=== PATIENT | female | born 1975 | race Hispanic/Latino ===

== ENCOUNTER 2016-09-13 10:11 | Emergency (ER) | payer SELFPAY ==
[2016-09-13 10:59] LABS: #Basophils 0.1 thou/uL (0.0-0.2); #Monocytes 0.6 thou/uL (0.11-0.59); %Eosinophils 0.5 % (0.0-10.0); %Lymphocytes 45.4 % (21.0-51.0); %Monocytes 8.3 % (0.0-10.0); %Neutrophils 44.8 % (42.0-75.0); Hemoglobin 13.3 g/dL (12.0-16.0); Mean Corpuscular HGB CONC 32.7 g/dL (32.0-36.0); Mean Corpuscular Hemoglobin 29.4 pg (27.0-31.0); Mean Corpuscular Volume 89.7 fl (81.0-99.0); Mean Platelet Volume 7.1 fL (7.4-10.4); Platelet Count 289 thou/uL (130-400); RBC Distribution Width 11.8 % (11.5-14.5); Red Blood Cell (RBC) Count 4.54 mill/uL (4.20-5.40); White Blood Cell (WBC) Count 6.6 thou/uL (4.8-10.8)
[2016-09-13 11:02] LABS: Prothrombin Time 13.4 SEC (12.0-14.7)
[2016-09-13 11:06] LABS: Pregnancy Test - Urine (BHCG) Negative (NEGATIVE); Pregu Control Background? CLEAR/WHITE (CLR/WHITE); Pregu Control Bar Appear? YES (CONTROL BAR)
[2016-09-13 11:07] LABS: Bilirubin Negative (Negative); Blood, Urine Trace (Negative); Clarity Clear (Clear); Glucose, Urine (Dipstick) Negative (Negative); Leukocyte Small (Negative); Nitrite Negative (Negative); Protein, Urine (Dipstick) Negative (Neg-Trace); Urobilinogen 0.2 mg/dL (0.2-1.0); pH, Urine 5.5 (5.0-9.0)
[2016-09-13 11:07] LABS: ALT (SGPT) 58 U/L (8-55); AST (SGOT) 28 U/L (5-34); Albumin 4.1 g/dL (3.5-5.0); Alkaline Phosphatase 84 U/L (40-150); Anion Gap 17 mmol/L (10-20); BUN (Urea Nitrogen) 11 mg/dL (7.0-18.7); Bilirubin, Total 0.2 mg/dL (0.2-1.2); Calc. Creatinine Clearance 0 mL/min (70-130); Calcium 9.2 mg/dL (7.8-10.44); Carbon Dioxide 22 mmol/L (22-29); Chloride 103 mmol/L (98-107); Estimated GFR-MDRD Greater than 90; Globulin 3.6 g/dL (2.4-3.5); Glucose 104 mg/dL (70-105); Potassium 3.5 mmol/L (3.5-5.1); Protein, Total 7.7 g/dL (6.0-8.3); Sodium 138 mmol/L (136-145)
[2016-09-13 11:09] LABS: Bacteria/HPF 1+ HPF (None Seen)
[2016-09-13] MEDS ORDERED: Ibuprofen 800 MG TAB ONE (11:38)
[2016-09-13] MEDS ORDERED: predniSONE 20 MG TAB ONE (11:41)
--- NOTE | 2016-09-13 11:52 | CT ---
CT HEAD NONCONTRAST: HISTORY: Left facial paralysis and numbness. TIA. FINDINGS: No comparison. There is no evidence of acute intracranial hemorrhage or infarct. The ventricles ap pear normal in size, shape, and position. There is no mass effect or shift of midline structures. IMPRESSION: No acute intracranial abnormalities are demonstrated on noncontrast CT head. POS: [facility]AN
== END 2016-09-13 11:55 | disposition home or self-care (01) ==
LOC: NAV ERS 10:11
DX: G51.0 Bell's palsy (principal); F32.9 Major depressive disorder, single episode, unspecified
CPT/HCPCS: 36416; 70450; 80053; 81003; 81015; 81025; 85025; 85610; 93005; J7506